=== PATIENT | female | born 1985 | race Caucasian/White ===

== ENCOUNTER → 2016-03-01 | Outpatient (CLI) | payer MEDICARE ==
[~2016-03-01] MED LIST: ALIGN4 MG PO; AMBIEN 10MG TAB10 MG PO; AMPYRA10 MG PO; AVPAK PRIMIDONE50 MG PO; BACLOFEN20 MG PO; BACTRIM DS 8001 TA1 PO; BENADRYL 25MG C25 MG PO; BUPROPION HCL150 M2 PO; CARLSON VITAM2000 IU PO; CEFDINIR 300MG300 MG PO; CIPRO 500MG TA500 MG PO; CLONAZEPAM0.5 M1 PO; DOMPERIDONE1 POW; DOMPERIDONE1 POW PO; FIBER CON625 MG PO; FIBERCON625 MG PO; FOLIC ACID 1MG T1 MG PO; GILDESS 1/201 TAB PO; HIPREX1 GM PO; HYDROCODONE-APA1 TA1 PO; KLONOPIN 0.5MG0.5 MG NG; LEUCOVORIN CALC15 MG PO; LEUCOVORIN CALC25 MG PO; LEVAQUIN500 MG PO; MACROBID 100MG100 M1 PO; NATURE'S BLEND1 TA6 PO; OMNICEF 300 MG300 MG PO; OXYBUTYNIN5 MG PO; RITUXAN100 MG/10 IV; SPRINTEC 35 MCG1 TAB PO; VITAMIN B12100 MC1 PO
[2016-03-01 16:11] LABS: AEROMONAS NOT DETECTED (NOT DETECTE); ASTROVIRUS NOT DETECTED (NOT DETECTE); CYCLOSPORA CAYETANENSIS NOT DETECTED (NOT DETECTE); E COLI O157 NOT DETECTED (NOT DETECTE); ENTEROAGGREGATIVE E COLI NOT DETECTED (NOT DETECTE); ENTEROPATHOGENIC E COLI NOT DETECTED (NOT DETECTE); ENTEROTOXIGENIC E COLI NOT DETECTED (NOT DETECTE); NOROVIRUS NOT DETECTED (NOT DETECTE); SAPOVIRUS NOT DETECTED (NOT DETECTE); SHIGA-LIKE TOXIN PROD. E COLI NOT DETECTED (NOT DETECTE); SHIGELLA/ENTEROINVASIVE E COLI NOT DETECTED (NOT DETECTE); VIBRIO CHOLERAE NOT DETECTED (NOT DETECTE)
== END ==
LOC: LAB 16:09
PROVIDERS: Nurse Practitioner Family
DX: R19.7 Diarrhea, unspecified (principal)